=== PATIENT | male | born 1990 | race Two or more races ===

== ENCOUNTER 2018-07-14 18:40 | Emergency (ER) | payer SELFPAY ==
[2018-07-14] MEDS ORDERED: ONDANSETRON HCL INJ/PF 4 MG/2 ML SDV IV ONE ×2 (19:04→21:16)
[2018-07-14] MEDS ORDERED: HYDROMORPHONE HCL INJ/PF 2 MG/ML AMPULE IV ONE ×3 (19:04→21:15)
--- NOTE | 2018-07-14 19:06 | ER Document Report ---
ED Medical Screen (RME) - General Chief Complaint: Arm Injury Stated Complaint: FALL/LEFT ARM INJURY Time Seen by Provider: 07/14/18 19:04 Mode of Arrival: Ambulatory Information source: Patient TRAVEL OUTSIDE OF THE [place] IN LAST 30 DAYS: No - HPI Patient complains to provider of: fall Onset: Just prior to arrival - pt fell to the ground while doing pull-ups. C/o L humeral pain. No LOC - Related Data Allergies/Adverse Reactions: No Known Allergies Allergy (Unverified 07/14/18 18:47) Physical Exam - Vital signs Vitals: Temp Pulse Resp BP Pulse Ox 99 F 76 18 130/79 H 98 07/14/18 18:50 07/14/18 18:50 07/14/18 18:50 07/14/18 18:50 07/14/18 18:50 Course - Vital Signs Vital signs: Temp Pulse Resp BP Pulse Ox 99 F 76 18 130/79 H 98 07/14/18 18:50 07/14/18 18:50 07/14/18 18:50 07/14/18 18:50 07/14/18 18:50 Doctor's Discharge - Discharge Referrals: LOCALMD,NO [Primary Care Provider] - Follow up as needed
--- NOTE | 2018-07-14 20:18 | ER Document Report ---
ED General - General Chief Complaint: Arm Injury Stated Complaint: FALL/LEFT ARM INJURY Time Seen by Provider: 07/14/18 19:04 Mode of Arrival: Ambulatory Notes: Patient is a 27-year-old male resents to the emergency department this evening after grabbing a pull up bar to try to step over a baby gate, but slipped and fell on his left arm. This happened around 1800 this evening. He states his pain is a sore pain. He is unable to move his arm. He denies any decrease in sensation or swelling. He has no past medical history. He does smoke cigarettes and marijuana, does occasional cocaine, and drinks alcohol daily. He admits that he had some marijuana earlier today before his injury. TRAVEL OUTSIDE OF THE [place] IN LAST 30 DAYS: No - Related Data Allergies/Adverse Reactions: No Known Allergies Allergy (Unverified 07/14/18 18:47) Past Medical History - General Information source: Patient - Social History Smoking Status: Current Every Day Smoker Smoking Education Provided: Yes - <3 Frequency of alcohol use: Heavy Drug Abuse: Cocaine, Marijuana Family History: Reviewed & Not Pertinent Review of Systems - Review of Systems Notes: REVIEW OF SYSTEMS: CONSTITUTIONAL : Denies recent illness. Denies recent unintentional weight loss. Denies fever, chills, or sweats. EENT: Denies eye, ear, throat, or mouth pain, discharge, or symptoms. Denies nasal or sinus congestion. CARDIOVASCULAR: Denies chest pain. RESPIRATORY: Denies shortness of breath, cough, congestion, difficulty breathing , or wheezing. GASTROINTESTINAL: Denies nausea, vomiting, and diarrhea. Denies abdominal pain. Denies constipation. GENITOURINARY: Denies difficulty urinating, burning, blood in urine, urgency or frequency. MUSCULOSKELETAL: See HPI SKIN: Denies rash, itchiness, or lesions HEMATOLOGIC : Denies easy bruising or bleeding. LYMPHATIC: Denies swollen, painful, enlarged glands. NEUROLOGICAL: Denies no numbness or tingling denies weakness. Denies headache. Denies altered mental status. Denies alteration in speech. PSYCHIATRIC: Denies stress, anxiety, alteration in sleep patterns, or depression. All other systems reviewed and negative. Physical Exam - Vital signs Vitals: Temp Pulse Resp BP Pulse Ox 99 F 76 18 130/79 H 98 07/14/18 18:50 07/14/18 18:50 07/14/18 18:50 07/14/18 18:50 07/14/18 18:50 - Notes Notes: PHYSICAL EXAMINATION: GENERAL: Appears well, healthy, well-nourished, no acute distress. HEAD: Normocephalic, atraumatic. EYES: PERRL, conjunctiva normal, all extraocular movements intact, sclera nonicteric ENT: Moist mucous membranes. NECK: Supple, no noticeable swelling, redness, rash. Normal range of motion. LUNGS: Equal breath sounds bilaterally and clear to auscultation. No wheezes rales or rhonchi. CARDIOVASCULAR: S1-S2, regular rate, regular rhythm. Radial pulses 2+, normal. ABDOMEN: Normoactive bowel sounds. Soft, nontender, no guarding, no rebound tenderness, and no masses palpated. EXTREMITIES: Unable to perform range of motion in left arm normal strength and range of motion in the right upper extremity and bilateral lower extremities, no pitting or edema. No cyanosis. NEUROLOGICAL: Unable abduct left upper extremity. Strength 5 out of 5 in left hand and strength 5/5 in right upper and bilateral lower extremities. PSYCH: Normal mood, normal affect. SKIN: Warm, dry. No rash, lesions, ulcerations noted. Normal skin turgor. Course - Re-evaluation Re-evalutation: 07/14/18 20:20 Patient is a 27-year-old male who presents to the emergency department with a left arm injury. His radial pulses are normal. Neurovascular exam is intact. Hand strength is 5 out of 5 on the affected side. 07/14/18 21:17 I reviewed the patient's left humerus x-ray and he has a minimally displaced midshaft fracture. I have called Dr. Syed for consultation and discussed the findings with him. He recommends a sling immobilizer and follow-up on Sunday in the outpatient clinic. I have discussed the findings with the patient. Verbal discharge instructions have been given to the patient. He verbalized understanding. He does complain of pain and he will be given another dose of Zofran and Dilaudid for pain control. He has a ride home. He is stable for discharge. - Vital Signs Vital signs: Temp Pulse Resp BP Pulse Ox 99 F 76 14 134/99 H 92 07/14/18 18:50 07/14/18 18:50 07/14/18 21:44 07/14/18 21:44 07/14/18 21:44 Discharge - Discharge Clinical Impression: Closed left arm fracture Qualifiers: Encounter type: initial encounter Qualified Code(s): S42.302A - Unspecified fracture of shaft of humerus, left arm, initial encounter for closed fracture Condition: Stable Disposition: HOME, SELF-CARE Additional Instructions: You have been seen in the emergency department for left arm pain. Your x-ray shows you have a fracture of your left upper arm. Please follow-up on Sunday with the orthopedic doctor listed below. Please rest the area, you may apply ice 20 minutes on and 20 minutes off as needed. You may take Tylenol 1000 mg every 6 hours as needed for the pain. You have also been prescribed morphine. You may take 1 tablet every 4 hours as needed for the pain. If you develop a fever greater than 100.4 F, have swelling that is getting worse, or have any symptoms that are worrisome to you, please return to the emergency department. Prescriptions: Morphine Sulfate [Morphine Ir 15 Mg Tablet] 15 mg PO Q4H PRN #12 tablet PRN Reason: Referrals: MULUGETA SYED MD [ACTIVE STAFF] - 07/16/18
--- NOTE | 2018-07-14 20:32 | RADIOLOGY REPORT (SQ) ---
EXAM DESCRIPTION: HUMERUS LEFT COMPLETED DATE/TIME: 07/14/2018 8:13 pm REASON FOR STUDY: Fall/ injury to upper arm/ deformity COMPARISON: None. NUMBER OF VIEWS: Two views. TECHNIQUE: Two radiographic images were acquired of the left humerus to include elbow and shoulder i n at least one projection. LIMITATIONS: None. FINDINGS: MINERALIZATION: Normal. BONES: Transverse fracture of the mid humeral shaft with minimal medial displacement. 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 No additional fracture. SOFT TISSUES: No obvious swelling or foreign body. OTHER: No other significant finding. IMPRESSION: Transverse minimally displaced fracture of the midshaft of the humerus. TECHNICAL DOCUMENTATION: JOB ID: [id number] [employer] All Rights Reserved Reading location - IP/workstation name: [email or web address]
[2018-07-14 21:49] VITALS: BP 134/99
== END 2018-07-14 21:49 | disposition home or self-care (01) ==
LOC: ER 18:40
DX: S42.322A Displaced transverse fracture of shaft of humerus, left arm, initial encounter for closed fracture (principal); W01.0XXA Fall on same level from slipping, tripping and stumbling without subsequent striking against object, initial encounter; Y93.89 Activity, other specified; F12.10 Cannabis abuse, uncomplicated; F14.10 Cocaine abuse, uncomplicated; F17.210 Nicotine dependence, cigarettes, uncomplicated
CPT/HCPCS: 96376; 99283; 96374; 96375; 73060; J1170; J2405

== ENCOUNTER 2019-08-12 18:48 | Emergency (ER) | payer OTHER ==
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
--- NOTE | 2019-08-12 21:16 | RADIOLOGY REPORT (SQ) ---
3 VIEWS OF THE THORACIC SPINE EXAM DATE: 08/12/2019 8:17 PM [facility] BUTLER HISTORY: Lower back pain. COMPARISON: None. FINDINGS: No acute thoracic compression fracture is seen. There is normal alignment without subluxation. The disc spaces and facet joints are preserved. The visualized lungs are clear. IMPRESSION: No acute thoracic findings are seen.
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
[2019-08-12] MEDS ORDERED: NAPROXEN 250 MG TABLET PO ONE (23:02)
[2019-08-12] MEDS ORDERED: CYCLOBENZAPRINE HCL 10 MG TABLET PO ONE (23:02)
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
[2019-08-12 23:16] VITALS: BP 147/76
== END 2019-08-12 23:18 | disposition home or self-care (01) ==
LOC: ER 18:48
DX: S29.019A Strain of muscle and tendon of unspecified wall of thorax, initial encounter (principal); S39.012A Strain of muscle, fascia and tendon of lower back, initial encounter; M54.9 Dorsalgia, unspecified; M54.2 Cervicalgia; M54.6 Pain in thoracic spine; V87.7XXA Person injured in collision between other specified motor vehicles (traffic), initial encounter; F14.10 Cocaine abuse, uncomplicated; F12.10 Cannabis abuse, uncomplicated
CPT/HCPCS: 72070; 72110; 99283

== ENCOUNTER 2020-05-25 16:28 | Emergency (ER) | payer SELFPAY ==
--- NOTE | 2020-05-25 17:34 | ER Document Report ---
ED Medical Screen (RME) - General Chief Complaint: Chest Pain Stated Complaint: CHEST PAIN, HEART RACING Mode of Arrival: Ambulatory Information source: Patient TRAVEL OUTSIDE OF THE [place] IN LAST 30 DAYS: No - Related Data Allergies/Adverse Reactions: No Known Allergies Allergy (Unverified 07/14/18 18:47) Past Medical History Musculoskeltal Medical History: Reports Hx Musculoskeletal Deformity, Reports Hx Musculoskeletal Trauma Traumatic Medical History: Reports: Hx Fractures - Left humerus Physical Exam - Vital signs Vitals: Temp Pulse BP Pulse Ox 98.7 F 75 151/93 H 98 05/25/20 16:41 05/25/20 16:41 05/25/20 16:41 05/25/20 16:41 Course - Re-evaluation Re-evalutation: 05/25/20 17:33 pt with 2 days cp radiating to left arm. no pmh. no uri sx's. believes it is stress. non smoker exam, RRR, lungs clear un labored, pt in no distress. - Vital Signs Vital signs: Temp Pulse Resp BP Pulse Ox 98.7 F 75 151/93 H 98 05/25/20 16:41 05/25/20 16:41 05/25/20 16:41 05/25/20 16:41
--- NOTE | 2020-05-25 17:58 | RADIOLOGY REPORT (SQ) ---
EXAM DESCRIPTION: CHEST 2 VIEWS IMAGES COMPLETED DATE/TIME: 05/25/2020 5:42 pm REASON FOR STUDY: cp COMPARISON: None. EXAM PARAMETERS: NUMBER OF VIEWS: two views TECHNIQUE: Digital Frontal and Lateral radiographic views of the chest acquired. RADIATION DOSE: NA LIMITATIONS: none FINDINGS: LUNGS AND PLEURA: No opacities, masses or pneumothorax. No pleural effusion. MEDIASTINUM AND HILAR STRUCTURES: No masses or contour abnormalities. HEART AND VASCULAR STRUCTURES: Heart normal size. No evidence for failure. BONES: No acute findings. HARDWARE: None in the chest. OTHER: No other significant finding. IMPRESSION: NO ACUTE RADIOGRAPHIC FINDING IN THE CHEST. TECHNICAL DOCUMENTATION: JOB ID: [id number] [employer]- All Rights Reserved Reading location - IP/workstation name: [email or web address]
[2020-05-25 18:28] LABS: ABSOLUTE BASOPHILS # (AUTO) 0.1 10^3/uL (0.0-0.2); ABSOLUTE EOSINOPHILS # (AUTO) 0.2 10^3/uL (0.0-0.6); ABSOLUTE LYMPHOCYTES (AUTO) 1.7 10^3/uL (0.5-4.7); ABSOLUTE MONOCYTES (AUTO) 0.5 10^3/uL (0.1-1.4); ABSOLUTE NEUT (AUTO) 5.2 10^3/uL (1.7-8.2); BASOPHILS % (AUTO) 0.7 % (0-2); EOSINOPHILS % (AUTO) 3.1 % (0-6); HEMATOCRIT 47.5 % (37.9-51.0); HEMOGLOBIN 17.1 g/dL (13.5-17.0); LYMPHOCYTES % (AUTO) 22.2 % (13-45); MEAN CORPUSCULAR HEMOGLOBIN 32.8 pg (27.0-33.4); MEAN CORPUSCULAR HGB CONC 36.1 g/dL (32.0-36.0); MEAN CORPUSCULAR VOLUME 91 fl (80-97); PLATELET COUNT 308 10^3/uL (150-450); RED BLOOD COUNT 5.23 10^6/uL (4.35-5.55); RED CELL DISTRIBUTION WIDTH 12.2 % (11.5-14.0); TOTAL CELLS COUNTED % (AUTO) 100 %; WHITE BLOOD COUNT 7.8 10^3/uL (4.0-10.5)
[2020-05-25 18:49] LABS: ALBUMIN 4.9 g/dL (3.5-5.0); ALKALINE PHOSPHATASE 94 U/L (38-126); ANION GAP 11 (5-19); ASPARTATE AMINO TRANSFERASE 91 U/L (17-59); BILIRUBIN,DIRECT 0.5 mg/dL (0.0-0.4); BILIRUBIN,TOTAL 1.3 mg/dL (0.2-1.3); BLOOD UREA NITROGEN 8 mg/dL (7-20); CALCIUM 9.9 mg/dL (8.4-10.2); CARBON DIOXIDE 28 mmol/L (22-30); CHLORIDE 100 mmol/L (98-107); GLUCOSE 103 mg/dL (75-110); POTASSIUM 4.5 mmol/L (3.6-5.0); TOTAL PROTEIN 8.1 g/dL (6.3-8.2)
[2020-05-25] MEDS ORDERED: NORMAL SALINE 1000 ML 1,000 ML IV ONE (23:10)
[2020-05-25] MEDS ORDERED: SUCRALFATE 1 GM TABLET PO ONE (23:10)
--- NOTE | 2020-05-25 23:22 | ER Document Report ---
ED General - General Chief Complaint: Chest Pain Stated Complaint: CHEST PAIN, HEART RACING Time Seen by Provider: 05/25/20 23:01 Mode of Arrival: Ambulatory Notes: Patient is a 29-year-old male that comes to the emergency department for chief complaint of intermittent palpitations and intermittent sharp pain in his left upper abdomen and left side of his chest over the past 3 to 4 days. He denies nausea or vomiting but he does report decreased appetite. He denies dizziness, shortness of breath, cough, fever, passing out, or current symptoms. Patient states that 1 week ago he did use cocaine and he is worried that this may have caused a problem, he states he uses very intermittently. He smokes marijuana, denies recreational drugs otherwise. He smokes cigarettes daily, he drinks alcohol daily, he denies ever having history of withdrawal. He denies any diagnosed medical history, he does not take any daily medications. TRAVEL OUTSIDE OF THE [place] IN LAST 30 DAYS: No - Related Data Allergies/Adverse Reactions: No Known Allergies Allergy (Unverified 07/14/18 18:47) Past Medical History - General Information source: Patient - Social History Smoking Status: Never Smoker Chew tobacco use (# tins/day): No Frequency of alcohol use: Occasional Drug Abuse: Cocaine Family History: Reviewed & Not Pertinent Patient has homicidal ideation: No Musculoskeletal Medical History: Reports Hx Musculoskeletal Deformity, Reports Hx Musculoskeletal Trauma Traumatic Medical History: Reports: Hx Fractures - Left humerus Review of Systems - Review of Systems Constitutional: No symptoms reported EENT: No symptoms reported Cardiovascular: See HPI Respiratory: See HPI Gastrointestinal: See HPI Genitourinary: No symptoms reported Male Genitourinary: No symptoms reported Musculoskeletal: No symptoms reported Skin: No symptoms reported Hematologic/Lymphatic: No symptoms reported Neurological/Psychological: No symptoms reported Physical Exam - Vital signs Vitals: Temp Pulse BP Pulse Ox 98.7 F 75 151/93 H 98 05/25/20 16:41 05/25/20 16:41 05/25/20 16:41 05/25/20 16:41 - Notes Notes: GENERAL: Alert, interacts well. No acute distress. HEAD: Normocephalic, atraumatic. EYES: Pupils equal, round, and reactive to light. Extraocular movements intact. ENT: Oral mucosa moist, tongue midline. Oropharynx unremarkable. Airway patent. NECK: Full range of motion. Supple. Trachea midline. No lymphadenopathy. LUNGS: Clear to auscultation bilaterally, no wheezes, rales, or rhonchi. No respiratory distress. Non-tender chest wall. HEART: Regular rate and rhythm. No murmur ABDOMEN: Soft, non-tender. Non-distended. Bowel sounds present in all 4 quadrants. GENITOURINARY: Deferred EXTREMITIES: Moves all 4 extremities spontaneously. No edema, normal radial and dorsalis pedis pulses bilaterally. No cyanosis. BACK: no cervical, thoracic, lumbar midline tenderness. No saddle anesthesia, normal distal neurovascular exam. Moves all extremities in full range of motion. NEUROLOGICAL: Alert and oriented x3. Normal speech. Cranial nerves II through XII grossly intact. Strength 5/5 in all extremities. PSYCH: Normal affect, normal mood. SKIN: Warm, dry, normal turgor. No rashes or lesions noted. Course - Re-evaluation Re-evalutation: Patient is not currently having palpitations, he denies any chest pain, he indicates his left upper abdomen when I asked him to localize where his chest pain is specifically. As result I more strongly suspect gastritis especially with his reduced appetite, heavy alcohol abuse, smoking, and occasional cocaine. Symptoms have been going on several days, troponin is still negative, chest x- ray unremarkable, EKG unremarkable, CBC nonspecific. Chemistry shows mildly elevated LFTs consistent with alcohol abuse, bilirubin and lipase are unremarkable. Patient was given IV fluids and Carafate, after this he did not have any complaints, symptoms resolved, high suspicion that this is gastrointestinal, low suspicion of ACS. I discussed the serious dangers of cocaine abuse, patient states that he plans to never use this again. I discussed alcohol detox, patient states understanding and agreement. Stable and well-appearing without any complaints at time of discharge. - Vital Signs Vital signs: Temp Pulse Resp BP Pulse Ox 98.4 F 78 16 148/73 H 98 05/26/20 00:43 05/26/20 00:43 05/26/20 00:43 05/26/20 00:43 05/26/20 00:43 - Laboratory Result Diagrams: 05/25/20 18:00 05/25/20 18:00 Laboratory results interpreted by me: 05/25/20 05/25/20 18:00 18:00 Hgb 17.1 H MCHC 36.1 H Direct Bilirubin 0.5 H AST 91 H ALT 182 H - EKG Interpretation by Me Additional EKG results interpreted by me: EKG shows sinus rhythm at a rate of 75, QTC of 420, normal axis, no T wave inversions or ST segment changes in consecutive leads Discharge - Discharge Clinical Impression: LUQ pain, Palpitations Condition: Stable Disposition: HOME, SELF-CARE Additional Instructions: Your evaluation is most consistent with palpitations, inflammation of your upper gastrointestinal tract (gastritis), and also shows elevated liver function tests most likely from your alcohol use. Avoid any recreational/illegal substances. These are extremely dangerous and will lead to your with continued use. Smoking and alcohol both increase inflammation in your stomach/intestines as we discussed, stop smoking, reduce alcohol, take the Carafate and famotidine as prescribed. Consider alcohol detox, see listed referral below, otherwise follow-up with primary care. Return if you worsen including severe worsening pain, vomiting, vomiting blood, black stools, difficulty breathing, fever, or any other concerning symptoms. [facility] [address] [place] [id number] Hours: Open 24 hours Prescriptions: Sucralfate [Carafate 1 gm Tablet] 1 gm PO QID #20 tablet Famotidine [Pepcid 20 mg Tablet] 20 mg PO BID #20 tablet Forms: Return to Work
[2020-05-26 00:44] VITALS: BP 148/73
--- NOTE | 2020-05-26 01:40 | EKG REPORT ---
SEVERITY:- NORMAL ECG - SINUS RHYTHM : Confirmed by: Lakeisha Kee MD 26-May-2020 01:39:15
== END 2020-05-26 00:44 | disposition home or self-care (01) ==
LOC: ER 16:28
DX: R10.12 Left upper quadrant pain (principal); R00.2 Palpitations; R07.9 Chest pain, unspecified; M79.602 Pain in left arm; F10.10 Alcohol abuse, uncomplicated; F17.210 Nicotine dependence, cigarettes, uncomplicated
CPT/HCPCS: 93005; 99285; 96360; 36415; 83690; 85025; 80053; 84484; 71046; 93010; J7030